=== PATIENT | male | born 1955 | race Caucasian/White ===

== ENCOUNTER 2023-12-26 15:43 | Inpatient (IN) | payer OTHER ==
[~2023-12-26] VITALS: Ht 177.8 cm; Wt 69.9 kg
[2023-12-26 16:22] LABS: BASOPHILS ABSOLUTE AUTO 0.03 K/mm3 (0.00-0.23); BASOPHILS PERCENT AUTO 0 % (0-2); EOSINOPHILS ABSOLUTE AUTO 0.07 K/mm3 (0.00-0.68); EOSINOPHILS PERCENT AUTO 1 % (0-6); Hemoglobin 13.6 g/dL (13.5-17.5); IMMATURE GRAN ABSOLUTE AUTO 0.02 K/mm3 (0.00-0.10); IMMATURE GRAN PERCENT AUTO 0 % (0-1); LYMPHOCYTES ABSOLUTE AUTO 1.04 K/mm3 (0.84-5.20); LYMPHOCYTES PERCENT AUTO 11 % (21-46); MONOCYTES ABSOLUTE AUTO 0.79 K/mm3 (0.16-1.47); MONOCYTES PERCENT AUTO 9 % (4-13); Mean Corpuscular HGB 28.9 pg (26.0-34.0); Mean Corpuscular HGB Conc 33.2 g/dL (31.5-36.5); Mean Corpuscular Volume 87 fL (80-100); Mean Platelet Volume 10.6 fL (9.1-12.4); NEUTROPHILS ABSOLUTE AUTO 7.19 K/mm3 (1.96-9.15); NEUTROPHILS PERCENT AUTO 79 % (41-73); Platelet Count 191 K/mm3 (150-400); RDW Coefficient Variation 16.7 % (11.7-14.2); RDW Standard Deviation 52.5 fL (35.1-46.3); Red Blood Cell Count 4.71 M/mm3 (4.30-5.90); White Blood Cell Count 9.14 K/mm3 (4.00-11.30)
[2023-12-26 16:50] LABS: Albumin, Blood 2.9 g/dL (3.4-5.0); Albumin/Globulin Ratio 0.8 (0.8-1.8); Bilirubin, Total 0.8 mg/dL (0.1-1.0); Bun/Creatinine Ratio 12.2 (12.0-20.0); Creatinine, Blood 0.9 mg/dL (0.60-1.20); Globulin, Blood 3.8 g/dL (2.2-4.0); Potassium, Blood 3.5 mmol/L (3.5-5.5); Total Protein, Blood 6.7 g/dL (6.4-8.2)
[2023-12-26] MEDS ORDERED: Azithromycin 250 MG Tab PO ONE (17:35)
[2023-12-26] MEDS ORDERED: CefTRIAXone Sodium 1,000 MG in NS 100 ML IV ONE (17:35)
[2023-12-26 18:01] LABS: Influenza A, PCR NEGATIVE (NEGATIVE); Influenza B, PCR NEGATIVE (NEGATIVE); Resp Syncytial Virus, PCR NEGATIVE (NEGATIVE); SARS-Cov-2 (COVID-19) PCR, MMC NEGATIVE (NEGATIVE)
[2023-12-26] MEDS ORDERED: Furosemide 10 MG/ML 4ML Vial IV ONE (18:25)
[2023-12-26] MEDS ORDERED: TAMS.4ER PO (20:14)
[2023-12-26] MEDS ORDERED: LISI20 PO (20:14)
[2023-12-26] MEDS ORDERED: FLU VACC TS2024-25(6MOS UP)/PF 45 MCG/0.5 ML SYRINGE IM ONE (21:05)
[2023-12-26] MEDS ORDERED: Ondansetron HCl 2 MG / ML 2ML Vial IV PRN (21:05)
[2023-12-26] MEDS ORDERED: Enoxaparin 40 MG/0.4 ML SYR SC SCH (22:00)
[2023-12-26 22:29] VITALS: BP 122/102
[2023-12-27 05:23] VITALS: BP 140/107
[2023-12-27 06:34] LABS: BASOPHILS ABSOLUTE AUTO 0.05 K/mm3 (0.00-0.23); BASOPHILS PERCENT AUTO 1 % (0-2); EOSINOPHILS PERCENT AUTO 1 % (0-6); Hematocrit 38.5 % (37.0-53.0); IMMATURE GRAN ABSOLUTE AUTO 0.01 K/mm3 (0.00-0.10); IMMATURE GRAN PERCENT AUTO 0 % (0-1); LYMPHOCYTES ABSOLUTE AUTO 1.21 K/mm3 (0.84-5.20); LYMPHOCYTES PERCENT AUTO 16 % (21-46); MONOCYTES ABSOLUTE AUTO 0.91 K/mm3 (0.16-1.47); MONOCYTES PERCENT AUTO 12 % (4-13); Mean Corpuscular HGB 28.9 pg (26.0-34.0); Mean Corpuscular HGB Conc 33.8 g/dL (31.5-36.5); Mean Corpuscular Volume 86 fL (80-100); Mean Platelet Volume 10.1 fL (9.1-12.4); NEUTROPHILS ABSOLUTE AUTO 5.25 K/mm3 (1.96-9.15); NEUTROPHILS PERCENT AUTO 70 % (41-73); Platelet Count 163 K/mm3 (150-400); RDW Coefficient Variation 16.7 % (11.7-14.2); RDW Standard Deviation 50.7 fL (35.1-46.3); White Blood Cell Count 7.53 K/mm3 (4.00-11.30)
[2023-12-27 07:19] VITALS: BP 136/90
[2023-12-27 07:52] LABS: Albumin, Blood 2.7 g/dL (3.4-5.0); Albumin/Globulin Ratio 0.8 (0.8-1.8); Bilirubin, Total 0.8 mg/dL (0.1-1.0); Bun/Creatinine Ratio 12.6 (12.0-20.0); Calcium, Blood 8.7 mg/dL (8.5-10.1); Creatinine, Blood 0.88 mg/dL (0.60-1.20); Globulin, Blood 3.2 g/dL (2.2-4.0); Potassium, Blood 3.5 mmol/L (3.5-5.5); Total Protein, Blood 5.9 g/dL (6.4-8.2)
[2023-12-27] MEDS ORDERED: Furosemide 10 MG/ML 4ML Vial IV SCH ×4 (09:00→18:00)
[2023-12-27] MEDS ORDERED: Tamsulosin HCl 0.4 MG Cap PO SCH (09:00)
[2023-12-27] MEDS ORDERED: Lactobacil 2-S.Thermo-Bifido 1 1 Cap PO SCH (09:00)
[2023-12-27] MEDS ORDERED: Albuterol HFA200 ACT/6.7 GM INH INH PRN (10:45)
[2023-12-27] MEDS ORDERED: Potassium Chloride 20 MEQ TabCR PO ONE (11:00)
[2023-12-27] MEDS ORDERED: NS 250 ML IV PRN (17:10)
--- NOTE | 2023-12-27 17:56 | NUR ---
Pt A&Ox 4, VSS, RA, independent in room. Admitted last evening with SOB, and edema in lower extremities. CXR showed pulmonary edema, BNP 3,894. ECHO today showed EF 10-15%. New diagnosis of CHF. Cardiology consulted, pt to be NPO at midnight for stress test in the morning. SOB and edema improving with lasix, still SOB on exertion, and course lungs. Pt independent in room, able to make needs known, call light in reach.
[2023-12-27] MEDS ORDERED: Azithromycin 500 MG in NS 250 ML IV SCH (18:00)
[2023-12-27] MEDS ORDERED: CefTRIAXone Sodium 1,000 MG in NS 100 ML IV SCH (18:00)
[2023-12-27 20:30] VITALS: BP 117/90
[2023-12-28] VITALS (8 sets, daily range): BP systolic 106–147; BP diastolic 92–102
[2023-12-28] MEDS ORDERED: Albuterol 2.5 MG/3 ML VIAL INH PRN (01:00)
--- NOTE | 2023-12-28 02:39 | NUR ---
SHIFT SUMMARY PT ALERT AND ORIENTED TIMES 4. PT TRANSFERRED FROM ED THIS EVENING FOR SOB AND INCREASED EDEMA AND CHEST PAIN. PT BNP WAS 3894, POSSIBLE ACUTE CHF PNA. PT HAS CMP AND CBC LABS ORDERED FOR THE MORNING. BED IN LOW POSITION, CALL LIGHT WITHIN REACH, RAILS TIMES 2.
[2023-12-28 06:24] LABS: BASOPHILS ABSOLUTE AUTO 0.04 K/mm3 (0.00-0.23); BASOPHILS PERCENT AUTO 1 % (0-2); EOSINOPHILS PERCENT AUTO 1 % (0-6); IMMATURE GRAN ABSOLUTE AUTO 0.04 K/mm3 (0.00-0.10); IMMATURE GRAN PERCENT AUTO 1 % (0-1); LYMPHOCYTES ABSOLUTE AUTO 1.42 K/mm3 (0.84-5.20); LYMPHOCYTES PERCENT AUTO 17 % (21-46); MONOCYTES ABSOLUTE AUTO 1.01 K/mm3 (0.16-1.47); MONOCYTES PERCENT AUTO 12 % (4-13); Mean Corpuscular HGB 29.3 pg (26.0-34.0); Mean Corpuscular HGB Conc 34.3 g/dL (31.5-36.5); Mean Corpuscular Volume 85 fL (80-100); Mean Platelet Volume 10.6 fL (9.1-12.4); NEUTROPHILS ABSOLUTE AUTO 5.92 K/mm3 (1.96-9.15); NEUTROPHILS PERCENT AUTO 69 % (41-73); Platelet Count 172 K/mm3 (150-400); RDW Standard Deviation 51.9 fL (35.1-46.3); White Blood Cell Count 8.53 K/mm3 (4.00-11.30)
[2023-12-28 06:56] LABS: Albumin, Blood 2.7 g/dL (3.4-5.0); Albumin/Globulin Ratio 0.8 (0.8-1.8); Bilirubin, Total 0.6 mg/dL (0.1-1.0); Bun/Creatinine Ratio 14.3 (12.0-20.0); Calcium, Blood 8.8 mg/dL (8.5-10.1); Creatinine, Blood 1.05 mg/dL (0.60-1.20); Globulin, Blood 3.2 g/dL (2.2-4.0); Magnesium, Blood 1.5 mg/dL (1.6-2.4); Potassium, Blood 3.6 mmol/L (3.5-5.5); Thyroid Stimulating Hormone 4.21 uIU/mL (0.360-4.800); Total Protein, Blood 5.9 g/dL (6.4-8.2)
[2023-12-28] MEDS ORDERED: Magnesium Sulf 2 GM/Water 50ML 50 ML IV ONE (07:20)
[2023-12-28] MEDS ORDERED: Empagliflozin 10 MG TAB PO SCH (09:00)
[2023-12-28] MEDS ORDERED: Spironolactone 12.5 MG TAB PO SCH ×2 (09:00)
[2023-12-28] MEDS ORDERED: Potassium Chloride 20 MEQ/15 ML UDC PO SCH (09:00)
[2023-12-28] MEDS ORDERED: Lisinopril 20 MG Tab PO SCH ×2 (09:00)
[2023-12-28] MEDS ORDERED: Metoprolol Succinate 25 MG TABCR PO SCH ×2 (09:00)
--- NOTE | 2023-12-28 11:37 | NUR ---
Pt. is awake in bed when he welcomes my visit. Pt. displays evidence of being guarded at first but then displays evidence of trust. Pt. verbalized that he was anxious about an upcoming angiogram. Pastoral encouragement is given as well as normalizing the Pt. experience. Prayed with the Pt.Pt. verbalized gratitude for the spiritual care visit.
[2023-12-28] MEDS ORDERED: Heparin Sodium 1000 Units/ML 10ML MDV ONE (14:27)
[2023-12-28] MEDS ORDERED: NS 250 ML IV ONE (14:27)
[2023-12-28] MEDS ORDERED: Verapamil HCL 2.5 MG/ML 2ML Injection ONE (14:27)
[2023-12-28] MEDS ORDERED: NS 1,000 ML IV ONE ×2 (14:27→14:32)
[2023-12-28] MEDS ORDERED: Nitroglycerin 2 MG/20 ML BTL ONE (14:28)
[2023-12-28] MEDS ORDERED: FentaNYL Citrate 50 MCG/ML 2 ML Injection ONE (14:31)
[2023-12-28] MEDS ORDERED: Midazolam HCl 1MG / ML 2ML Vial ONE (14:32)
--- NOTE | 2023-12-28 14:47 | NUR ---
PATIENT TO CARDIO FOR ANGIOGRAM VIA W/C, REPORT TO SENIOR ASSOCIATE, PATIENT TO RETURN TO ROOM PCU2 AFTER THE ANGIOGRAM, PATIENT ALERT AND OREINTED X4, CLEARLY MAKES NEEDS KNOWN, PLEASANT TO ALL CARE
--- NOTE | 2023-12-28 16:00 | NUR ---
ARRIVAL FROM GRILL CHEF TO PCU 2 PT ARRIVED TO PCU AT APPROXIAMTELY 1535. PT A&Ox4, CALLS AND COMMUNICATES NEEDS APPROPRIATELY, ORIENTED TO CALL/UNIT. SpO2> 92% RA, DENIES SOB. PT HAS R RADIAL ACCESS, SITE WNL NO BRUISING, SWELLING, OR BLEEDING, TR BAND AND ARM BOARD IN PLACE. R AC ACCESS WITH MILD OOZING, HEART CENTER RN STATED THAT IT IS UNCHANGED FROM WHEN DRESSING WAS PLACED, OUTLINE MARKED WITH SHARPIE. BED IN LOWEST POSITION, CALL LIGHT IN REACH.
--- NOTE | 2023-12-28 18:48 | NUR ---
R RADIAL TR BAND RECOVERY 10mLs OF AIR PLACED IN TR BAND ON R RADIAL AT 1535 BY HEART CENTER RN. SITE WNL, NO OOZING, BRUISING, SWELLING , OR HEMATOMA; TR BAND AND ARM BOARD IN PLACE. DENIES TENDERNESS, SpO2> 92% ON R INDEX FINGER. 1715: THIS RN ATTEMPTED TO REMOVE 2mLs OF AIR FROM TR BAND, SITE STARTED TO OOZE, 2mLs PLACED BACK INTO TR BAND. NO HEMATOMA. ARM BOARD IN PLACE. 1725: 2mLs OF AIR REMOVED FROM TR BAND. NO OOZING, BRUISING, SWELLING, OR HEMATOMA PRESENT. DENIES PAIN. SpO2> 92% ON R INDEX FINGER. ARM BOARD IN PLACE. 1740: 2mLs OF AIR REMOVED FROM TR BAND. NO OOZING, BRUISING, SWELLING, OR HEMATOMA PRESENT. DENIES PAIN. SpO2> 92% ON R INDEX FINGER. ARM BOARD IN PLACE. 1750: 2mLs OF AIR REMOVED FROM TR BAND, NOW EMPTY. NO OOZING, BRUISING, SWELLING, OR HEMATOMA PRESENT. DENIES PAIN. SpO2> 92% ON R INDEX FINGER. ARM BOARD IN PLACE. 1850: TR BAND REMOVED, SITE CLEANED WITH CHOLHEXIDINE, SKIN PREP APPLIED, TEGADERM PLACED. NO OOZING, BRUISING, SWELLING, OR HEMATOMA PRESENT. DENIES PAIN. SpO2> 92% ON R INDEX FINGER. ARM BOARD IN PLACE. R AC SITE: DRESSING CHANGED D/T OOZING THAT WAS PRESENT UPON ARRIVAL FROM GUEST SERVICE HOST. DRESSING NOW C/D/I.
--- NOTE | 2023-12-28 18:52 | NUR ---
SHIFT SUMMARY SEE PREVIOUS NOTES. NO ACUTE CHANGES. PT WANTING TO BE INDEPENDENT IN ROOM, PREOVIDED FURTHER EDUCATION ON RECOVERY PROCESS AND BED ALARM ON. NO OTHER EVENTS, WILL REPORT TO ONCOMING RN.
[2023-12-29] VITALS (7 sets, daily range): BP systolic 101–116; BP diastolic 69–85
[2023-12-29] MEDS ORDERED: Magnesium Sulf 2 GM/Water 50ML 50 ML IV ONE (03:35)
--- NOTE | 2023-12-29 06:09 | NUR ---
SHIFT REPORT PT RESTING COMFORTABLY IN ROOM. PT HAD A 17 BEAT RUN OF MD CODY NOTIFIED AND 2G OF MAG WAS GIVEN VIA IV. PT HAS NO COMPLAINT OF CHEST PAIN OR SOB. 1-2L NC APPLIED TO PT WHILE SLEEPING FOR SLEEP APNEA. R RADIAL SITE AND R AC SITE BOTH C/D/I AND WNL, ARM BOARD TAKEN OFF WITH NO SIGNS OF BLEEDING OR HEMATOMA. PT PLAN OF CARE CONTINUED.
[2023-12-29 07:25] LABS: BASOPHILS ABSOLUTE AUTO 0.04 K/mm3 (0.00-0.23); BASOPHILS PERCENT AUTO 1 % (0-2); EOSINOPHILS ABSOLUTE AUTO 0.17 K/mm3 (0.00-0.68); EOSINOPHILS PERCENT AUTO 2 % (0-6); Hematocrit 34.1 % (37.0-53.0); Hemoglobin 11.6 g/dL (13.5-17.5); IMMATURE GRAN ABSOLUTE AUTO 0.03 K/mm3 (0.00-0.10); IMMATURE GRAN PERCENT AUTO 0 % (0-1); LYMPHOCYTES PERCENT AUTO 18 % (21-46); MONOCYTES ABSOLUTE AUTO 0.82 K/mm3 (0.16-1.47); MONOCYTES PERCENT AUTO 10 % (4-13); Mean Corpuscular HGB 29.7 pg (26.0-34.0); Mean Corpuscular Volume 87 fL (80-100); Mean Platelet Volume 10.5 fL (9.1-12.4); NEUTROPHILS ABSOLUTE AUTO 5.73 K/mm3 (1.96-9.15); NEUTROPHILS PERCENT AUTO 69 % (41-73); Platelet Count 163 K/mm3 (150-400); RDW Coefficient Variation 16.9 % (11.7-14.2); RDW Standard Deviation 53.3 fL (35.1-46.3); Red Blood Cell Count 3.91 M/mm3 (4.30-5.90); White Blood Cell Count 8.29 K/mm3 (4.00-11.30)
[2023-12-29 07:53] LABS: Bun/Creatinine Ratio 13.6 (12.0-20.0); Calcium, Blood 8.7 mg/dL (8.5-10.1); Creatinine, Blood 1.03 mg/dL (0.60-1.20); Potassium, Blood 3.5 mmol/L (3.5-5.5)
[2023-12-29] MEDS ORDERED: Potassium Chloride 20 MEQ TabCR PO ONE (09:00)
--- NOTE | 2023-12-29 16:44 | NUR ---
SHIFT SUMMARY A&Ox4, CALLS AND COMMUNICATES NEEDS APPROPRIATELY. PT IS VERY GRUMPY AND SCEPTILCAL OF PLAN AND MEDICATION REGIMEN, EDUCATION AND REASSURANCE PROVIDED. BP STABLE, SINUS 80-90's, DENIES CP/PRESSURE. SpO2> 92% RA, DENIES SOB, THOUGH PTs WORK OF BREATHING IS SLIGHTLY INCREASED AFTER ACTIVITY BUT CONTINUES TO DENY SOB. SBA IN ROOM. R RADIAL AND R AC SITE REMAINED WNL, ARM BOARD IN PLACE. NO OTHER EVENTS, WILL REPORT TO ONCOMING RN.
[2023-12-30 04:01] VITALS: BP 119/75
[2023-12-30 04:28] LABS: Hematocrit 33.7 % (37.0-53.0); Hemoglobin 11.2 g/dL (13.5-17.5); Mean Corpuscular HGB 28.5 pg (26.0-34.0); Mean Corpuscular HGB Conc 33.2 g/dL (31.5-36.5); Mean Corpuscular Volume 86 fL (80-100); Mean Platelet Volume 10.4 fL (9.1-12.4); Platelet Count 176 K/mm3 (150-400); RDW Coefficient Variation 16.6 % (11.7-14.2); RDW Standard Deviation 51.1 fL (35.1-46.3); Red Blood Cell Count 3.93 M/mm3 (4.30-5.90); White Blood Cell Count 8.83 K/mm3 (4.00-11.30)
[2023-12-30 04:55] LABS: Bun/Creatinine Ratio 15.7 (12.0-20.0); Calcium, Blood 8.8 mg/dL (8.5-10.1); Creatinine, Blood 1.02 mg/dL (0.60-1.20); Potassium, Blood 3.4 mmol/L (3.5-5.5)
[2023-12-30] MEDS ORDERED: Potassium Chloride 20 MEQ/15 ML UDC PO ONE (08:15)
[2023-12-30 08:49] VITALS: BP 118/76
[2023-12-30] MEDS ORDERED: Losartan Potassium 25 MG Tab PO SCH (09:00)
[2023-12-30] MEDS ORDERED: Spironolactone 12.5 MG TAB PO SCH (09:00)
[2023-12-30 16:10] VITALS: BP 110/76
--- NOTE | 2023-12-30 17:50 | NUR ---
End of shift note. Pt has been pleasant and cooperative this shift. Some complaints of fatigue this morning but Pt reports it has since improved. Pt has been independent in the room. Staff has offered to walk with him in the halls multiple times but Pt has refused. Pt continues to receive diuretics, making good urine output. Good PO intake. Pt is able to make needs known, call light is within reach.
[2023-12-30 20:34] VITALS: BP 105/82
[2023-12-30 23:12] VITALS: BP 95/67
[2023-12-31 03:37] VITALS: BP 113/78
[2023-12-31 04:51] LABS: BASOPHILS ABSOLUTE AUTO 0.05 K/mm3 (0.00-0.23); BASOPHILS PERCENT AUTO 1 % (0-2); EOSINOPHILS ABSOLUTE AUTO 0.18 K/mm3 (0.00-0.68); EOSINOPHILS PERCENT AUTO 2 % (0-6); Hematocrit 33.4 % (37.0-53.0); Hemoglobin 11.3 g/dL (13.5-17.5); IMMATURE GRAN ABSOLUTE AUTO 0.03 K/mm3 (0.00-0.10); IMMATURE GRAN PERCENT AUTO 0 % (0-1); LYMPHOCYTES ABSOLUTE AUTO 1.73 K/mm3 (0.84-5.20); LYMPHOCYTES PERCENT AUTO 22 % (21-46); MONOCYTES ABSOLUTE AUTO 0.84 K/mm3 (0.16-1.47); MONOCYTES PERCENT AUTO 11 % (4-13); Mean Corpuscular HGB 28.8 pg (26.0-34.0); Mean Corpuscular HGB Conc 33.8 g/dL (31.5-36.5); Mean Corpuscular Volume 85 fL (80-100); Mean Platelet Volume 11.2 fL (9.1-12.4); NEUTROPHILS ABSOLUTE AUTO 5.01 K/mm3 (1.96-9.15); NEUTROPHILS PERCENT AUTO 64 % (41-73); Platelet Count 179 K/mm3 (150-400); RDW Coefficient Variation 16.6 % (11.7-14.2); RDW Standard Deviation 50.4 fL (35.1-46.3); Red Blood Cell Count 3.93 M/mm3 (4.30-5.90); White Blood Cell Count 7.84 K/mm3 (4.00-11.30)
[2023-12-31 05:44] LABS: Albumin, Blood 2.6 g/dL (3.4-5.0); Albumin/Globulin Ratio 0.8 (0.8-1.8); Bilirubin, Total 0.6 mg/dL (0.1-1.0); Bun/Creatinine Ratio 16.2 (12.0-20.0); Calcium, Blood 8.6 mg/dL (8.5-10.1); Creatinine, Blood 1.05 mg/dL (0.60-1.20); Globulin, Blood 3.3 g/dL (2.2-4.0); Potassium, Blood 3.5 mmol/L (3.5-5.5); Total Protein, Blood 5.9 g/dL (6.4-8.2)
--- NOTE | 2023-12-31 05:44 | NUR ---
SHIFT SUMMARY NO ACUTE CHANGES OVERNIGHT. WOLF HOSES APPLIED. PT EDUCATED ON WOLF HOSE USE, DAILY WEIGHTS AT HOME, SHORTNESS OF BREATH, EDEMA, AND FLUID INTAKE.
[2023-12-31 08:00] VITALS: BP 119/79
[2023-12-31 11:13] VITALS: BP 100/70
[2023-12-31 13:07] VITALS: BP 99/71
--- NOTE | 2023-12-31 13:09 | NUR ---
I CALLED DR. TAFOYA ABOUT 1300 DOSE OF LASIX. THE PT'S BP IS 99/70 AND HE IS DRIVING HOME FOR DISCHARGE. DR. TAFOYA STATED TO HOLD THIS DOSE NOW. PT PENDING DISCHARGE. SEE NOTES FOR UPDATES.
[2023-12-31] MEDS ORDERED: LOSA25 PO (13:54)
[2023-12-31] MEDS ORDERED: JARDIANCE10 MG PO (13:54)
[2023-12-31] MEDS ORDERED: ALDACTONE25 MG PO (13:55)
[2023-12-31] MEDS ORDERED: FURO40 PO (13:55)
[2023-12-31] MEDS ORDERED: METO25ER PO (13:55)
--- NOTE | 2023-12-31 14:30 | NUR ---
DISCHARGE AT 1430 THE PT'S VS REMAIN STABLE, ALL BELONGINGS WERE RETURNED TO THE PT, HIS QUESTIONS WERE ANSWERED, AND HE WAS WHEELED OUT IN THE [facility] BY THE JIG OPERATOR. HIS IV WAS TAKEN OUT BEFORE DISCHARGE SEE NOTES FOR UPDATES.
[2024-01-01] MEDS ORDERED: Thiamine HCl 100 MG Tab PO SCH (09:00)
== END 2023-12-31 14:30 | disposition home or self-care (01) | DRG 286 ==
LOC: ER 15:43 → MEDS 15:44 → PCU 12-28 15:50
PROVIDERS: Family Medicine; Hospitalist; Student in an Organized Health Care Education/Training Program; ADMIT Internal Medicine
PROC: 3E02340 Introduction of Influenza Vaccine into Muscle, Percutaneous Approach (ICD-10-PCS; principal; 2023-12-26)
PROC: B2111ZZ Fluoroscopy of Multiple Coronary Arteries using Low Osmolar Contrast (ICD-10-PCS; 2023-12-28)
PROC: 4A023N6 Measurement of Cardiac Sampling and Pressure, Right Heart, Percutaneous Approach (ICD-10-PCS; 2023-12-28)
DX: I11.0 Hypertensive heart disease with heart failure (principal); I50.21 Acute systolic (congestive) heart failure; J18.9 Pneumonia, unspecified organism; E87.1 Hypo-osmolality and hyponatremia; E83.42 Hypomagnesemia; Z23 Encounter for immunization; N40.0 Benign prostatic hyperplasia without lower urinary tract symptoms; G47.33 Obstructive sleep apnea (adult) (pediatric); Z88.8 Allergy status to other drugs, medicaments and biological substances
CPT/HCPCS: 0241U; 36415; 71045; 76937; 80048; 80053; 82728; 83690; 83735; 83880; 84443; 84484; 85025; 85027; 90656; 93005; 93010; 93460; 94640; 94664; 94760; 96365; 96372; 96375; 96376; 99152; 99285-25; A9270; C1769; C1887; C1894; C8929; G0378; J0456; J0696; J1644; J1650; J1940; J2250; J3010; J3475; J7030; J7050; Q9957; Q9967

== ENCOUNTER 2024-04-29 08:02 | Day surgery (SDC) | payer OTHER ==
[~2024-04-29] VITALS: Ht 172.7 cm; Wt 71.0 kg
[~2024-04-29 08:02] MED LIST: ALDACTONE25 MG PO; FURO40 PO; JARDIANCE10 MG PO; LISI20 PO; LOSA25 PO; Lactated Ringer's 1,000 ML IV SCH; Lidocaine HCl 2% 20 ML MDV ONE; METO25ER PO; TAMS.4ER PO; propofoL 50 ML IV ONE
--- NOTE | 2024-04-29 08:52 | NUR ---
Ambulatory in Day Surgery. History, Chart, Medications and Allergies reviewed before start of procedure. Lungs clear T/O to Auscultation. Patient confirms NPO status and agrees with scheduled surgery. Pre-Op teaching done. Pt verbalizes understanding. Patient States Post-Procedure ride home has been arranged. PT HAS DENTURES AND CONTACT LENSES IN PLACE, ENDO TEAM NOTIFIED, PER DR EUNICE PEREZ TO LEAVE IN FOR PROCEDURE.
[2024-04-29 08:55] VITALS: BP 146/81
--- NOTE | 2024-04-29 09:33 | NUR ---
04/29/24 0933 Javier Soto History, Chart, Medications and Allergies reviewed before start of procedure. MONITOR INTACT WITH CONTINUOUS PULSE OXIMETRY, CONTINUOUS END TITAL CO2, 3-LEAD EKG AND INTERMITTENT BLOOD PRESSURE.3-LEAD EKG REVIEWED WITH PHYSICIAN PRIOR TO START OF PROCEDURE.O2 VIA POM INTACT THROUGHOUT SEDATION/PROCEDURE.See Anesthesia record.
[2024-04-29 10:08] VITALS: BP 134/71
--- NOTE | 2024-04-29 10:09 | NUR ---
REPORT RECEIVED FROM JOSE BAHENA. VSS. PT ON RA. PT A&OX4. PT ABLE TO REPOSITION SELF IN BED. PT REQUESTING PO FLUIDS AND TOLERATING THEM WELL. PT DENIES PAIN, NAUSEA OR OTHER DISCOMFORTS.
[2024-04-29 10:21] VITALS: BP 133/77
[2024-04-29] MEDS ORDERED: Etomidate 2MG / ML 10ML Vial IV ONE (15:58)
== END 2024-04-29 10:33 | disposition home or self-care (01) ==
LOC: ORSCMMR 08:02 → ORD 09:30 → ORSCMMR 10:33
PROVIDERS: Internal Medicine Gastroenterology
PROC: 0DBL8ZX Excision of Transverse Colon, Via Natural or Artificial Opening Endoscopic, Diagnostic (ICD-10-PCS; principal; 2024-04-29 09:30)
PROC: 0DBK8ZX Excision of Ascending Colon, Via Natural or Artificial Opening Endoscopic, Diagnostic (ICD-10-PCS; principal; 2024-04-29 09:30)
PROC: 0DBN8ZX Excision of Sigmoid Colon, Via Natural or Artificial Opening Endoscopic, Diagnostic (ICD-10-PCS; principal; 2024-04-29 09:30)
DX: Z12.11 Encounter for screening for malignant neoplasm of colon (principal); R19.5 Other fecal abnormalities; K63.5 Polyp of colon; D12.2 Benign neoplasm of ascending colon; D12.5 Benign neoplasm of sigmoid colon; J44.9 Chronic obstructive pulmonary disease, unspecified; K57.30 Diverticulosis of large intestine without perforation or abscess without bleeding; Z87.891 Personal history of nicotine dependence; Z79.899 Other long term (current) drug therapy
CPT/HCPCS: 88305; J2704; J7120